=== PATIENT | male | born 1970 | race Caucasian/White ===

== ENCOUNTER 2019-10-30 18:13 | Emergency (ER) | payer MEDICAID ==
[~2019-10-30] VITALS: Ht 177.8 cm; Wt 72.6 kg
[2019-10-30 18:19] VITALS: BP 118/74
--- NOTE | 2019-10-30 19:04 | NUR ---
PT TO BED 11
--- NOTE | 2019-10-30 19:08 | NUR ---
49M PRESENTS TO ED WITH C/O 10/10 L RIB PAIN X 1 WEEK. PT STATES COMING FROM URGENT CARE TWICE THIS WEEK AND SEEING PCP TODAY AND GOT AN XRAY. STATES THAT XRAY WAS NORMAL AND SONOGRAM REVEALED TORN TISSUE PER THE PT'S STATEMENT. -LOC, -N/V/D, -COUGH NEGATIVE FOR COVID SCREENING. PMHX: DENIES RX: DENIES
--- NOTE | 2019-10-30 19:08 | NUR ---
XR AT BEDSIDE.
[2019-10-30 19:10] VITALS: BP 118/74
[2019-10-30] MEDS ORDERED: KETOROLAC 60 MG/2 ML VIAL IM ONE (19:35)
--- NOTE | 2019-10-30 19:50 | NUR ---
pt taken to ct via w/c
--- NOTE | 2019-10-30 19:52 | NUR ---
PT MEDICATED WITH TORADOL IM. TOLERATED WELL. NADR
== END 2019-10-30 20:43 | disposition home or self-care (01) ==
LOC: MED 18:13
DX: S20.212A Contusion of left front wall of thorax, initial encounter (principal); W17.89XA Other fall from one level to another, initial encounter; Y93.89 Activity, other specified; Y92.89 Other specified places as the place of occurrence of the external cause; Y99.8 Other external cause status
CPT/HCPCS: 71045; 71250; 96372; 99284; J1885; Q0092